=== PATIENT | female | born 2000 | race Hispanic/Latino ===

== ENCOUNTER 2021-03-31 18:06 | Emergency (ER) | payer OTHER ==
[~2021-03-31] VITALS: Ht 157.5 cm; Wt 61.2 kg
[2021-03-31 18:12] VITALS: BP 132/96
[2021-03-31] MEDS ORDERED: LIDOCAINE HCL 400MG/20ML VIAL ONE (18:16)
[2021-03-31] MEDS ORDERED: ACETAMINOPHEN WITH CODEINE 1 TAB TAB ONE (18:24)
[2021-03-31] MEDS ORDERED: TETANUS/DIPHTHERIA TOXOID [ADULT] 0.5 ML VIAL IM ONE ×2 (18:30→18:32)
[2021-03-31] MEDS ORDERED: ACETAMINOPHEN WITH CODEINE 1 TAB TAB PO ONE (18:30)
[2021-03-31] MEDS ORDERED: CEPHALEXIN 500 MG CAPSULE PO ONE (18:30)
[2021-03-31] MEDS ORDERED: LIDOCAINE 1%-EPI 1:100,000 20 ML VIAL IJ SCH (18:30)
[2021-03-31] MEDS ORDERED: CEPHALEXIN 500 MG CAPSULE ONE (18:32)
[2021-03-31] MEDS ORDERED: LIDOCAINE HCL 1% 10 ML VIAL ONE (19:24)
[2021-03-31] MEDS ORDERED: CEPH500B PO (19:46)
[2021-03-31] MEDS ORDERED: OCTYL 2-CYANOACRYLATE 1 EACH TP ONE (19:46)
== END 2021-03-31 20:05 | disposition home or self-care (01) ==
LOC: EDH 18:06
DX: S61.212A Laceration without foreign body of right middle finger without damage to nail, initial encounter (principal); S67.21XA Crushing injury of right hand, initial encounter; S67.22XA Crushing injury of left hand, initial encounter; S50.811A Abrasion of right forearm, initial encounter; Z88.8 Allergy status to other drugs, medicaments and biological substances; W23.0XXA Caught, crushed, jammed, or pinched between moving objects, initial encounter; Y93.89 Activity, other specified; Y92.89 Other specified places as the place of occurrence of the external cause; Y99.8 Other external cause status
CPT/HCPCS: 12001; 73130 ×2; 90471; 90714; 99283; J3490

== ENCOUNTER → 2022-12-15 | Outpatient (CLI) | payer OTHER ==
[~2022-12-15] MED LIST: CEPH500B PO; IOHEXOL 180 MG/ML 20 ML VIAL ONE
== END | disposition home or self-care (01) ==
LOC: RAH 09:04
PROVIDERS: ATTEND Orthopaedic Surgery
DX: M70.61 Trochanteric bursitis, right hip (principal)
CPT/HCPCS: 73723; 20610; 77002; Q9965

== ENCOUNTER → 2023-01-12 | Outpatient (CLI) | payer OTHER ==
[~2023-01-12] MED LIST changes: -IOHEXOL 180 MG/ML 20 ML VIAL ONE; +IOHEXOL-350 75 ML VIAL IV ONE
[2023-01-12 11:04] LABS: BASOPHILS # (AUTO) 0.02 K/uL (0.00-0.20); BASOPHILS % (AUTO) 0.4 % (0.0-5.0); EOSINOPHILS # (AUTO) 0.05 K/uL (0.00-0.70); EOSINOPHILS % (AUTO) 0.9 % (0.0-8.0); HEMATOCRIT 38.1 % (36-48); IMMATURE GRANULOCYTE ABSOLUTE 0.01 K/uL (0-1); LYMPHOCYTES # (AUTO) 1.5 K/uL (1.0-4.8); LYMPHOCYTES % (AUTO) 28.1 % (21.0-51.0); MEAN CORPUSCULAR HEMOGLOBIN 29.7 pg (27.0-33.0); MEAN CORPUSCULAR HGB CONC 34.6 g/dL (32.0-36.0); MEAN CORPUSCULAR VOLUME 85.6 fL (79-99); MONOCYTES # (AUTO) 0.4 K/uL (0.1-1.0); MONOCYTES % (AUTO) 6.8 % (3.0-13.0); NEUTROPHILS # (AUTO) 3.5 K/uL (1.8-7.7); NEUTROPHILS % (AUTO) 63.6 % (40.0-77.0); PLATELET COUNT (AUTO) 222 K/uL (130-400); RED BLOOD CELL COUNT(AUTO) 4.45 MIL/uL (4.00-5.50); RED CELL DISTRIBUTION WIDTH 11.9 % (11.0-15.5); WHITE BLOOD COUNT (AUTO) 5.5 K/uL (4.8-10.8)
[2023-01-12 11:15] LABS: CREATININE 0.9 mg/dL (0.5-1.5)
[2023-01-12 11:19] LABS: ALBUMIN 4.5 g/dL (3.5-5.0); BILIRUBIN,TOTAL 0.8 mg/dL (0.2-1.0); CREATININE 0.9 mg/dL (0.5-1.5); TOTAL PROTEIN, SERUM 8.2 g/dL (6.0-8.3)
[2023-01-16 02:09] LABS: ALLERGEN CHOCOLATE/CACAO <0.10 kU/L (Class 0); ALLERGEN COCONUT <0.10 kU/L (Class 0); ALLERGEN EGG WHITE IGE 0.19 kU/L (Class 0/I); ALLERGEN LAMB 0.27 kU/L (Class 0/I); ALLERGEN LIMA BEAN 0.12 kU/L (Class 0/I); ALLERGEN PECAN NUT <0.10 kU/L (Class 0); ALLERGEN SESAME SEED 0.23 kU/L (Class 0/I); ALLERGEN SHRIMP <0.10 kU/L (Class 0); ALLERGEN WALNUT <0.10 kU/L (Class 0)
== END | disposition home or self-care (01) ==
LOC: RAH 10:41
PROVIDERS: ATTEND Internal Medicine
DX: R10.32 Left lower quadrant pain (principal); R19.4 Change in bowel habit
CPT/HCPCS: 74178; 86364; 80053; 85025; 82784; 86003 ×44; 86231; 36415; Q9967 ×2; 82565; 83516; 84520

== ENCOUNTER → 2023-02-04 | Outpatient (CLI) | payer OTHER ==
[~2023-02-04] MED LIST changes: -IOHEXOL-350 75 ML VIAL IV ONE
== END | disposition home or self-care (01) ==
LOC: RAH 14:18
PROVIDERS: ATTEND Nurse Practitioner Adult Health
DX: N63.21 Unspecified lump in the left breast, upper outer quadrant (principal); N63.11 Unspecified lump in the right breast, upper outer quadrant; R92.2 Inconclusive mammogram; N64.4 Mastodynia